=== PATIENT | female | born 1965 | race African-American/Black ===

== ENCOUNTER 2020-08-06 07:23 | Inpatient (IN) | payer MEDICAID ==
[~2020-08-06] VITALS: Ht 165.1 cm; Wt 69.9 kg
[2020-08-08 08:21] LABS: BASOPHILS % 0.5 % (0.0-2.0); EOSINOPHILS % 0.1 % (0.0-5.0); HEMATOCRIT. 44.4 % (36.0-48.0); HEMOGLOBIN. 15.8 g/dL (12.0-16.0); LYMPHOCYTES % 37.9 % (20.0-50.0); MEAN CORPUSCULAR VOLUME 84.4 fL (81.0-99.0); MEAN PLATELET VOLUME 7.6 fl (7.4-10.4); MONOCYTES % 7.8 % (2.0-8.0); NEUTROPHILS % 53.7 % (40.0-76.0); PLATELET 306 x1000/uL (130-400); RED BLOOD CELL COUNT 5.27 mill/uL (4.2-5.4)
[2020-08-08 08:27] LABS: CHLORIDE 106 mEq/L (98-107)
[2020-08-08 08:28] LABS: PROTHROMBIN TIME 10.7 sec (9.6-11.0)
[2020-08-08 21:30] VITALS: BP 106/72
[2020-08-08 22:46] VITALS: BP 106/72
[2020-08-08] MEDS ORDERED: LORAZEPAM 2MG/ML CPJ IV PRN (23:30)
[2020-08-08] MEDS ORDERED: DEXTROSE 50% WATER 50ML SYRINGE IV PRN (23:30)
[2020-08-08] MEDS ORDERED: RISP3 PO (23:38)
[2020-08-08] MEDS ORDERED: DIVA500T3 MT (23:38)
[2020-08-08] MEDS ORDERED: METF-416 MT (23:38)
[2020-08-09] VITALS: BP 102/58
[2020-08-09 04:00] VITALS: BP 105/60
[2020-08-09 07:07] LABS: CHLORIDE 105 mEq/L (98-107)
[2020-08-09] MEDS: BLOOD SUGAR DIAGNOSTIC STRIP TEST SCH ×4 (07:23→20:50)
[2020-08-09 08:00] VITALS: BP 132/81
[2020-08-09 08:52] LABS: BASOPHILS % 0.7 % (0.0-2.0); EOSINOPHILS % 0.1 % (0.0-5.0); HEMATOCRIT. 46.9 % (36.0-48.0); HEMOGLOBIN. 16.4 g/dL (12.0-16.0); LYMPHOCYTES % 35.6 % (20.0-50.0); MEAN CORPUSCULAR HEMOGLOBIN 30.1 pg (28.0-32.0); MEAN PLATELET VOLUME 7.6 fl (7.4-10.4); MONOCYTES % 7.8 % (2.0-8.0); NEUTROPHILS % 55.8 % (40.0-76.0); PLATELET 321 x1000/uL (130-400); RED BLOOD CELL COUNT 5.45 mill/uL (4.2-5.4); RED CELL DISTRIBUTION WIDTH 12.9 % (11.6-14.6)
[2020-08-09] MEDS: DIVALPROEX SODIUM 500MG DR TABLET PO SCH ×2 (08:58→20:50)
[2020-08-09] MEDS: RISPERIDONE 1MG TABLET PO SCH ×2 (08:58→22:06)
[2020-08-09] MEDS: ENOXAPARIN 40MG/0.4ML SYR SUBCUT SCH (09:00)
[2020-08-09] MEDS: INSULIN LISPRO 100 UNITS/ML SUBCUT SCH ×4 (09:03→20:52)
[2020-08-09 12:00] VITALS: BP 90/61
[2020-08-09 16:00] VITALS: BP 90/53
[2020-08-09 20:25] VITALS: BP 91/56
[2020-08-10] VITALS: BP 84/53
[2020-08-10 04:00] VITALS: BP 97/55
[2020-08-10] MEDS: BLOOD SUGAR DIAGNOSTIC STRIP TEST SCH ×3 (06:49→21:00)
[2020-08-10] MEDS: INSULIN LISPRO 100 UNITS/ML SUBCUT SCH ×3 (07:50→21:13)
[2020-08-10 08:00] VITALS: BP_SYST 162; BP_DIAS 100; BP_DIAS 122
[2020-08-10] MEDS: DIVALPROEX SODIUM 500MG DR TABLET PO SCH ×2 (09:17→21:10)
[2020-08-10] MEDS: RISPERIDONE 1MG TABLET PO SCH ×2 (09:17→21:10)
[2020-08-10] MEDS: ENOXAPARIN 40MG/0.4ML SYR SUBCUT SCH (09:17)
[2020-08-10 12:00] VITALS: BP 113/69
[2020-08-10 16:00] VITALS: BP 106/62
[2020-08-10 20:00] VITALS: BP_SYST 134; BP_DIAS 18; BP_DIAS 78
[2020-08-11] VITALS: BP 124/79
[2020-08-11 04:00] VITALS: BP 130/78
[2020-08-11] MEDS: INSULIN LISPRO 100 UNITS/ML SUBCUT SCH ×3 (07:39→21:53)
[2020-08-11] MEDS: BLOOD SUGAR DIAGNOSTIC STRIP TEST SCH ×4 (07:40→21:00)
[2020-08-11 08:00] VITALS: BP 108/75
[2020-08-11] MEDS: RISPERIDONE 1MG TABLET PO SCH ×2 (09:33→21:24)
[2020-08-11] MEDS: DIVALPROEX SODIUM 500MG DR TABLET PO SCH ×2 (09:33→21:23)
[2020-08-11] MEDS: ENOXAPARIN 40MG/0.4ML SYR SUBCUT SCH (09:33)
[2020-08-11 12:00] VITALS: BP 113/75
[2020-08-11 16:00] VITALS: BP 120/82
[2020-08-11 20:00] VITALS: BP 117/81
[2020-08-12] VITALS: BP 125/74
[2020-08-12 04:00] VITALS: BP 115/64
[2020-08-12] MEDS: BLOOD SUGAR DIAGNOSTIC STRIP TEST SCH ×4 (06:51→21:15)
[2020-08-12] MEDS: INSULIN LISPRO 100 UNITS/ML SUBCUT SCH ×4 (07:50→21:20)
[2020-08-12 08:00] VITALS: BP 129/76
[2020-08-12] MEDS: DIVALPROEX SODIUM 500MG DR TABLET PO SCH ×2 (09:00→21:15)
[2020-08-12] MEDS: ENOXAPARIN 40MG/0.4ML SYR SUBCUT SCH (09:33)
[2020-08-12] MEDS: RISPERIDONE 1MG TABLET PO SCH ×2 (09:34→21:15)
[2020-08-12 12:00] VITALS: BP 118/72
[2020-08-12 16:00] VITALS: BP 118/72
[2020-08-12 20:00] VITALS: BP 122/73
[2020-08-13] VITALS: BP 116/58
[2020-08-13 04:00] VITALS: BP 95/65
[2020-08-13] MEDS: BLOOD SUGAR DIAGNOSTIC STRIP TEST SCH ×4 (07:49→21:44)
[2020-08-13 08:00] VITALS: BP 115/82
[2020-08-13] MEDS: DIVALPROEX SODIUM 500MG DR TABLET PO SCH ×2 (08:13→21:43)
[2020-08-13] MEDS: ENOXAPARIN 40MG/0.4ML SYR SUBCUT SCH (08:14)
[2020-08-13] MEDS: INSULIN LISPRO 100 UNITS/ML SUBCUT SCH ×4 (08:17→21:57)
[2020-08-13] MEDS: RISPERIDONE 1MG TABLET PO SCH ×2 (09:13→21:43)
[2020-08-13 12:00] VITALS: BP 111/70
[2020-08-13 16:00] VITALS: BP 117/79
[2020-08-13 20:00] VITALS: BP 138/90
[2020-08-14] VITALS (7 sets, daily range): BP systolic 96–141; BP diastolic 52–87
[2020-08-14] MEDS: BLOOD SUGAR DIAGNOSTIC STRIP TEST SCH ×4 (06:52→21:46)
[2020-08-14] MEDS: RISPERIDONE 1MG TABLET PO SCH ×2 (09:49→21:46)
[2020-08-14] MEDS: DIVALPROEX SODIUM 500MG DR TABLET PO SCH ×2 (09:49→21:45)
[2020-08-14] MEDS: ENOXAPARIN 40MG/0.4ML SYR SUBCUT SCH (09:49)
[2020-08-14] MEDS: INSULIN LISPRO 100 UNITS/ML SUBCUT SCH ×4 (09:53→21:00)
[2020-08-14 10:14] LABS: BASOPHILS % 0.3 % (0.0-2.0); HEMATOCRIT. 39.1 % (36.0-48.0); LYMPHOCYTES % 31.4 % (20.0-50.0); MEAN CORPUSCULAR HEMOGLOBIN 30.7 pg (28.0-32.0); MEAN CORPUSCULAR VOLUME 85.9 fL (81.0-99.0); MEAN PLATELET VOLUME 7.7 fl (7.4-10.4); MONOCYTES % 6.8 % (2.0-8.0); NEUTROPHILS % 61.5 % (40.0-76.0); PLATELET 260 x1000/uL (130-400); RED BLOOD CELL COUNT 4.55 mill/uL (4.2-5.4); RED CELL DISTRIBUTION WIDTH 12.8 % (11.6-14.6)
[2020-08-14 10:27] LABS: CHLORIDE 106 mEq/L (98-107)
[2020-08-15 05:00] VITALS: BP 133/86
[2020-08-15] MEDS: BLOOD SUGAR DIAGNOSTIC STRIP TEST SCH ×4 (06:46→20:43)
[2020-08-15] MEDS: INSULIN LISPRO 100 UNITS/ML SUBCUT SCH ×4 (07:28→20:43)
[2020-08-15 08:00] VITALS: BP 121/91
[2020-08-15] MEDS: DIVALPROEX SODIUM 500MG DR TABLET PO SCH ×2 (08:46→20:42)
[2020-08-15] MEDS: RISPERIDONE 1MG TABLET PO SCH ×2 (08:46→20:42)
[2020-08-15] MEDS: ENOXAPARIN 40MG/0.4ML SYR SUBCUT SCH (08:47)
[2020-08-15 12:00] VITALS: BP 105/62
[2020-08-15 16:00] VITALS: BP 136/90
[2020-08-15 20:00] VITALS: BP 120/83
[2020-08-16] VITALS: BP 114/77
[2020-08-16 04:00] VITALS: BP 96/63
[2020-08-16] MEDS: BLOOD SUGAR DIAGNOSTIC STRIP TEST SCH ×4 (06:36→21:00)
[2020-08-16] MEDS: INSULIN LISPRO 100 UNITS/ML SUBCUT SCH ×4 (06:53→22:18)
[2020-08-16 08:00] VITALS: BP 116/78
[2020-08-16] MEDS: ENOXAPARIN 40MG/0.4ML SYR SUBCUT SCH (11:08)
[2020-08-16] MEDS: DIVALPROEX SODIUM 500MG DR TABLET PO SCH ×2 (11:08→21:05)
[2020-08-16] MEDS: RISPERIDONE 1MG TABLET PO SCH ×2 (11:08→21:05)
[2020-08-16 12:00] VITALS: BP 120/86
[2020-08-16 16:00] VITALS: BP 134/86
[2020-08-16 20:00] VITALS: BP 136/55
[2020-08-17] VITALS: BP 103/61
[2020-08-17 04:00] VITALS: BP 111/80
[2020-08-17] MEDS: BLOOD SUGAR DIAGNOSTIC STRIP TEST SCH ×4 (06:20→21:07)
[2020-08-17 08:00] VITALS: BP 105/71
[2020-08-17] MEDS: RISPERIDONE 1MG TABLET PO SCH ×2 (08:53→20:52)
[2020-08-17] MEDS: ENOXAPARIN 40MG/0.4ML SYR SUBCUT SCH (08:54)
[2020-08-17] MEDS: DIVALPROEX SODIUM 500MG DR TABLET PO SCH ×2 (08:54→21:38)
[2020-08-17] MEDS: INSULIN LISPRO 100 UNITS/ML SUBCUT SCH ×4 (09:00→20:53)
[2020-08-17 12:00] VITALS: BP 109/85
[2020-08-17 16:00] VITALS: BP 115/84
[2020-08-17 20:00] VITALS: BP 105/52
[2020-08-18] VITALS: BP 98/56
[2020-08-18 04:00] VITALS: BP 108/58
[2020-08-18] MEDS: BLOOD SUGAR DIAGNOSTIC STRIP TEST SCH ×4 (06:41→21:00)
[2020-08-18 08:00] VITALS: BP 111/72
[2020-08-18] MEDS: DIVALPROEX SODIUM 500MG DR TABLET PO SCH ×2 (09:36→22:05)
[2020-08-18] MEDS: RISPERIDONE 1MG TABLET PO SCH ×2 (09:36→22:09)
[2020-08-18] MEDS: ENOXAPARIN 40MG/0.4ML SYR SUBCUT SCH (09:37)
[2020-08-18] MEDS: INSULIN LISPRO 100 UNITS/ML SUBCUT SCH ×4 (09:45→22:30)
[2020-08-18 12:00] VITALS: BP 121/80
[2020-08-18 16:00] VITALS: BP 158/95
[2020-08-18 20:00] VITALS: BP 108/70
[2020-08-19] VITALS: BP 101/55
[2020-08-19 04:00] VITALS: BP 99/51
[2020-08-19] MEDS: BLOOD SUGAR DIAGNOSTIC STRIP TEST SCH ×4 (06:34→21:59)
[2020-08-19 08:00] VITALS: BP 118/73
[2020-08-19] MEDS: INSULIN LISPRO 100 UNITS/ML SUBCUT SCH ×4 (08:33→22:13)
[2020-08-19] MEDS: RISPERIDONE 1MG TABLET PO SCH ×2 (08:38→21:59)
[2020-08-19] MEDS: DIVALPROEX SODIUM 500MG DR TABLET PO SCH ×2 (08:38→21:58)
[2020-08-19] MEDS: ENOXAPARIN 40MG/0.4ML SYR SUBCUT SCH (08:39)
[2020-08-19 20:00] VITALS: BP_SYST 134; BP_SYST 138; BP_DIAS 63; BP_DIAS 72
[2020-08-20] VITALS: BP 127/79
[2020-08-20 04:00] VITALS: BP 112/69
[2020-08-20] MEDS: BLOOD SUGAR DIAGNOSTIC STRIP TEST SCH (06:38)
[2020-08-20] MEDS: INSULIN LISPRO 100 UNITS/ML SUBCUT SCH (07:50)
[2020-08-20] MEDS: RISPERIDONE 1MG TABLET PO SCH (08:41)
[2020-08-20] MEDS: ENOXAPARIN 40MG/0.4ML SYR SUBCUT SCH (08:44)
[2020-08-20] MEDS: DIVALPROEX SODIUM 500MG DR TABLET PO SCH (09:02)
[2020-08-20 11:05] VITALS: BP 118/78
== END 2020-08-20 11:41 | DRG 420 ==
LOC: ER 07:23 → 6EST 08-08 13:04 → EDBEDREQSVC 08-08 14:45 → ENRESERV 08-08 20:35 → 6EST 08-13 17:57
PROVIDERS: ADMIT Internal Medicine; ATTEND Internal Medicine
DX: E11.65 Type 2 diabetes mellitus with hyperglycemia (principal); F29 Unspecified psychosis not due to a substance or known physiological condition; R62.7 Adult failure to thrive; I10 Essential (primary) hypertension; F31.9 Bipolar disorder, unspecified; F79 Unspecified intellectual disabilities; Z20.822 Contact with and (suspected) exposure to COVID-19; Z68.25 Body mass index [BMI] 25.0-25.9, adult
CPT/HCPCS: 36415; 71045; 80048; 80053; 82962; 83036; 85025; 87426; 97162; 97166; 99285; C1893; J1650; J1815